=== PATIENT | male | born 1940 | race Caucasian/White ===

== ENCOUNTER 2018-10-13 12:40 | Emergency (ER) | payer MEDICARE, OTHER ==
[~2018-10-13] VITALS: Ht 167.6 cm; Wt 70.3 kg
--- NOTE | 2018-10-13 12:43 | NUR ---
PT A/OX4, BIB [facility] FROM HOME, FOR ARTERIAL BLEED FROM THE LATERAL ASPECT OF THE R ANKLE. PER FOREIGN EXCHANGE SERVICES MANAGER'S REPORT, PT WAS PICKING AT HIS SCAB WHEN BLOOD STARTED "SQUIRTING OUT" ONTO THE WALL. PT PRESENTS W/ DRESSING APPLIED BY [facility]. NO BLOOD SOAKING THROUGH THE DRESSING. VSS. PT DENIES PAIN, C/P, SOB, N/V/D, DIZZINESS, HEADACHE.
--- NOTE | 2018-10-13 12:52 | NUR ---
JULIAN CARTAGENA AT BEDSIDE. UPON REMOVING THE DRESSING APPLIED BY NICKY, NO BLEEDING NOTED.
--- NOTE | 2018-10-13 13:11 | NUR ---
PRESSURE DRESSING APPLIED TO THE R FOOT. JULIAN CARTAGENA AT BEDSIDE FOR PT UPDATE.
--- NOTE | 2018-10-13 13:24 | NUR ---
PMSC IN RLE INTACT, NORMAL, CAP REFILL < 3 SECONDS POST PRESSURE DRESSING APPLICATION.
--- NOTE | 2018-10-13 13:25 | NUR ---
Patient discharged to home in stable conditon. Written and verbal after care instructions given. Patient verbalizes understanding of instructions. ALL BELONGINGS W/ PT. PT SELF-AMBULATED W/O DIFFICULTY.
[2018-10-13 13:27] VITALS: BP 114/70
== END 2018-10-13 13:27 | disposition home or self-care (01) ==
LOC: ER 12:40
DX: I83.891 Varicose veins of right lower extremity with other complications (principal)
CPT/HCPCS: A4663

== ENCOUNTER 2021-05-18 13:16 | Inpatient (IN) | payer MEDICARE, OTHER ==
[~2021-05-18] VITALS: Ht 167.6 cm; Wt 64.4 kg
--- NOTE | 2021-05-18 13:57 | NUR ---
PT IS IN ROOM #2B. DR CHERRY EVALUATED THE PT.
[2021-05-18 14:50] LABS: HEMATOCRIT 34.3 % (36.7-47.1); MEAN CORPUSCULAR HEMOGLOBIN 34.6 uug (23.8-33.4); PLATELET COUNT (AUTO) 113 K/uL (152-348)
[2021-05-18 14:53] LABS: CREATININE 0.9 mg/dL (0.6-1.3); POTASSIUM 4.2 mmol/L (3.5-5.1)
[2021-05-18 14:59] LABS: BILIRUBIN,DIRECT 0.2 mg/dL (0.0-0.2); BILIRUBIN,TOTAL 0.8 mg/dL (0.2-1.0); TOTAL PROTEIN, SERUM 6.9 g/dL (6.4-8.2)
[2021-05-18] MEDS ORDERED: MORPHINE SULFATE 2 MG/1 ML DISP.SYRIN IV ONE (16:45)
[2021-05-18] MEDS ORDERED: ONDANSETRON 4 MG/2 ML VIAL IV ONE (16:45)
[2021-05-18] MEDS ORDERED: IV D5 1/2 NS 1000 ML 1,000 ML IV ONE (17:15)
[2021-05-18] MEDS ORDERED: ONDANSETRON 4 MG/2 ML VIAL ONE (17:39)
[2021-05-18] MEDS ORDERED: MORPHINE SULFATE 2 MG/1 ML DISP.SYRIN ONE (17:39)
[2021-05-18] MEDS ORDERED: IV D5 1/2 NS 1000 ML 1,000 ML IV PRN (18:00)
[2021-05-18] MEDS ORDERED: ONDANSETRON 4 MG/2 ML VIAL IV PRN (18:00)
[2021-05-18] MEDS ORDERED: MORPHINE SULFATE 2 MG/1 ML DISP.SYRIN IV PRN (18:00)
--- NOTE | 2021-05-18 19:24 | NUR ---
REPORT GIVEN TO VISUAL LEAD RN.
--- NOTE | 2021-05-18 19:45 | NUR ---
At pt bedside for assessment. Pt is a very pleasant 81yo male with a Hx of Sz disorder who had a ground level mechanical fall with no LOC. Pt states that he was in yoga class doing balancing exercises and it was the first time they had him use the soft foam steps that compress when stepped on. It was these soft foam steps that made him lose his balance and fall. Pt has no complaints of pain at this time and states that as long as he lies still, he is pain free, it is only when he attempts to move that he feels a shart stabbing pain. VSS, PE WNL, strong and equal curtain cutter hand strength bilat, strong and reg pulses x4ext, Lungs clear bilat, NSR without ectopy, RRR with normal s1s2 without g/m/r. Pt on gurney resting comfortably. Asked if i can get him anything, he said no thank you nothing at the moment. Briefly discussed pt's dispo with him; that hes being admitted and will most likely have surgery in the AM. I also told him that i will be expediting as much as possible to get him up soon and was just waiting for the teleRN at call back. Pt understood and was very patient and polite.
--- NOTE | 2021-05-18 19:50 | NUR ---
Called tele floor to try to give report since i was told thaty tele should be ready to recieve pt after sift change, however teleRN was with a pt and couldn't accept report at this time. She did however, say that she will call back at her earliest convienence. Pt resting comfortably patiently awaiting transport to his room 315.
--- NOTE | 2021-05-18 20:30 | NUR ---
TeleRN finally called back after 2 attempts from me to try to call in report. TeleRN however was very busy with another patient and had just finished up with her and was now ready to recieve report. Thorough report was given to military nurse using SBAR method. Pt has good color, temp and appearance. VSS, PE WNL beside the deformity and decrebitus at Rt hip due to ther fx. pt otherwise healthy besides SZ disorder. teleRN said to bring pt up as soon as I could.
--- NOTE | 2021-05-18 20:35 | NUR ---
informed admitting rep Jeana, to turn-over pt so I can take him to his room. Jeana said she was working on rolling over the other pt going to room 317 and that Mr. Fry would just have to wait til she's done. Stgar
--- NOTE | 2021-05-18 21:30 | NUR ---
Report given to PLATE AND FRAME FILTER OPERATOR using SBAR method. still awaiting admitting paper work before transport upstair to room 317. Pt sleeping comfortably with audible snorring. VSS, PE WNL. No complaints of pain.
[2021-05-18] MEDS ORDERED: LATA2.5D15 EACHEYE (21:57)
[2021-05-18] MEDS ORDERED: TIMO5DRO18 EACHEYE (21:57)
[2021-05-18] MEDS ORDERED: LEVE500T9 PO (21:57)
--- NOTE | 2021-05-18 22:15 | NUR ---
Pt transported to room 315 via gurney without incident or difficulty. Pt transfered into hospital bed using 2 ppl plus myself to pull him over on to bed. Pt dressed into hospital gown, tele monitor attached and pt placed in pos of comfort, all possessions accounted for. Pt has good color, temp and appearance. No complaints of pain, only when transfering to bed. no s/sx of distress present. Pt in good spirits aeb smiling and upbeat, jovial demeanor.
[2021-05-18] MEDS ORDERED: LATANOPROST OPHT DROP 2.5 ML BOTTLE EACHEYE SCH (22:30)
[2021-05-18] MEDS: levETIRAcetam 500 MG TABLET PO SCH (22:46)
[2021-05-18 23:08] VITALS: BP 134/57
--- NOTE | 2021-05-18 23:48 | NUR ---
Pt arrived in the unit at 2212 via gurney from ER. Admitted to Med Surg for right hip fx. AAO x4. No acute distress noted. Right AC IV, patent. IVF at 70cc/hr. Pt to be NPO after midnight for planned surgery in the morning. Pertinent assessment done. Oriented pt in room and equipment. Dr. Badillo seen pt for consult. Safety measures maintained. Call light and personal items within reach. Will continue to monitor.
--- NOTE | 2021-05-19 04:38 | NUR ---
IVF at 75 cc/hr, not 70cc/ hr.
[2021-05-19 04:41] VITALS: BP 109/52
[2021-05-19 06:02] LABS: HEMATOCRIT 30.3 % (36.7-47.1); MEAN CORPUSCULAR HEMOGLOBIN 34.4 uug (23.8-33.4); MEAN CORPUSCULAR VOLUME 96.9 fL (73.0-96.2); PLATELET COUNT (AUTO) 90 K/uL (152-348)
[2021-05-19 06:29] LABS: THYROID STIMULATING HORMONE 4.779 mIU/mL (0.358-3.740)
[2021-05-19 06:36] LABS: MAGNESIUM 1.8 mg/dL (1.8-2.4); POTASSIUM 3.8 mmol/L (3.5-5.1)
--- NOTE | 2021-05-19 07:30 | NUR ---
RECEIVED PATIENT ALERT/ORIENTEDX4. DENIES DISCOMFORT AT THE START OF THE SHIFT. NO PAIN IDENTIFIED. KEPT COMFORTABLE. DVT PUMP IN PLACE. IV LINE, INTACT AND INFUSING WELL. KEPT CALL LIGHT WITHIN REACH. WILL CONTINUE TO MONITOR.
[2021-05-19 08:00] VITALS: BP 114/53
[2021-05-19 08:15] VITALS: BP 106/51
[2021-05-19] MEDS: levETIRAcetam 500 MG TABLET PO SCH ×3 (08:30→16:50)
--- NOTE | 2021-05-19 08:30 | NUR ---
PATIENTS SIGNED CONSENTS FOR THE SURGERY. NO CONCERNS OR QUESTIONS AT THIS TIME. WILL CONTINUE TO MONITOR.
--- NOTE | 2021-05-19 08:34 | NUR ---
PATIENT REFUSED TO TAKE KEPPRA. HE STATED HE WILL TAKE IT AFTER THE SURGERY. HE ALSO STATED HE SKIPS THIS MEDICATION IF HE DOES NOT WANT TO TAKE IT. HE ALSO MENTIONED HIS LAST SEIZURE WAS YRS AGO. WILL CONTINUE TO MONITOR.
[2021-05-19 08:58] LABS: *RHEUMATOID FACTOR SCREEN NEGATIVE (NEGATIVE)
[2021-05-19] MEDS ORDERED: TIMOLOL MALEATE 0.5% OPHT DROP 5 ML BOTTLE OP SCH (09:00)
[2021-05-19 09:03] LABS: *BILIRUBIN,URIN NEGATIVE (NEGATIVE); *CLARITY,URINE CLEAR (CLEAR); *COLOR,URINE YELLOW (YELLOW); *KETONES,URINE NEGATIVE (NEGATIVE); *UROBILINOGEN,URINE 0.2 E.U./dl (NORMAL); LEUKOCYTE ESTERASE ,URINE NEGATIVE (NEGATIVE); NITRITE, URINE NEGATIVE (NEGATIVE); UGLUCOSE NEGATIVE (NEGATIVE)
[2021-05-19 09:06] LABS: *BLOOD, URINE TRACE (NEGATIVE)
[2021-05-19] MEDS: TIMOLOL MALEATE 0.5% OPHT DROP 5 ML BOTTLE EACHEYE SCH (10:30)
--- NOTE | 2021-05-19 10:35 | NUR ---
PATIENT LEFT FOR OR, ACCOMPANIED BY PATITO AND KIA VIA HOSPITAL BED. VS WNL. DENIES DISCOMFORT. VOIDED X1 IN URINAL. NO OTHER CONCERN AT THIS TIME.
[2021-05-19] MEDS ORDERED: FENTANYL CITRATE 250 MCG/5 ML AMPUL ONE (10:55)
[2021-05-19] MEDS ORDERED: ROCURONIUM BROMIDE 50 MG/5 ML VIAL ONE (10:56)
[2021-05-19] MEDS ORDERED: GLYCOPYRROLATE 0.2 MG/ML VIAL ONE ×2 (11:47→11:49)
[2021-05-19] MEDS ORDERED: VANCOMYCIN 1000 MG VIAL ONE (11:48)
[2021-05-19 13:01] LABS: BACTERIA,URINE NONE SEEN /HPF (NONE SEEN); SQUAMOUS EPITHELIAL CELL,UR FEW /HPF (NONE SEEN); WBC,URINE 0-3 /HPF (0-3)
[2021-05-19] MEDS ORDERED: HYDROMORPHONE 1 MG/1 ML DISP.SYRIN ONE (13:16)
[2021-05-19] MEDS ORDERED: MORPHINE SULFATE 4 MG/1 ML DISP.SYRIN IV PRN (13:30)
--- NOTE | 2021-05-19 14:10 | NUR ---
RECEIVED PATIENT AWAKE AND ALERT. DENIES PAIN AT THE TIME OF ARRIVAL TOT HE UNIT. IV OUT, REINSERTED G20 TO THE LEFT WRIST ON A FIRST ATTEMPT, DENIES DISCOMFORT, INFUSING WELL WITH IV RUNNING THE 75CC/HR ORDERED. RIGHT HIP DRESSING DRY AND INTACT. WITH ICE PACKS TO RIGHT HIP. KEPT COMFORTABLE. NEEDS ATTENDED. WILL CONTINUE TO MONITOR.
[2021-05-19 14:12] VITALS: BP 116/58
[2021-05-19] MEDS: POTASSIUM CHLORIDE 20 MEQ in IV D5 1/2 NS 1000 ML 1,000 ML IV PRN (14:28)
[2021-05-19 15:55] VITALS: BP 112/61
[2021-05-19] MEDS: FERROUS SULFATE 325 MG TABEC PO SCH (16:51)
--- NOTE | 2021-05-19 18:38 | NUR ---
PATIENT DENIES PAIN SINCE HE CAME BACK FROM THE SURGERY. HE ATE DINNER, TOLERATED REGULAR DIET WELL. DRESSING INTACT, NO BLEEDING NOTED. KEPT CALL LIGHT WITHIN REACH. NO OTHER CONCERNS IDENTIFIED. . ALL NEEDS ATTENDED. ALL DUE MEDS GIVEN ORDERED. WILL ENDORSE TO THE NEXT SHIFT FOR CONTINUITY OF CARE.
--- NOTE | 2021-05-19 19:00 | NUR ---
Received report from previous RN. Patient is awake, lying in bed, resting comfortably. Denies pain at this time. No signs of acute distress noted. A/Ox4. Checked IV site patent and flushed. No erythema, bleeding, or infiltration noted. Post op dressing is intact. Bed at lowest position, brakes on, siderails x2. Call light within reach. Will continue to monitor.
[2021-05-19 20:00] VITALS: BP 103/56
[2021-05-19] MEDS: CEFAZOLIN 1 G in IV DEXTROSE 5% 50 ML IV SCH (20:23)
[2021-05-19] MEDS: LATANOPROST OPHT DROP 2.5 ML BOTTLE EACHEYE SCH (20:24)
--- NOTE | 2021-05-20 00:32 | NUR ---
Resting comfortably. No significant change of condition noted. Will continue to monitor.
[2021-05-20] MEDS: CEFAZOLIN 1 G in IV DEXTROSE 5% 50 ML IV SCH (03:13)
[2021-05-20] MEDS ORDERED: IV D5W-0.45% NS +20 KCL 1,000 ML IV ONE ×2 (03:26→03:41)
[2021-05-20 04:00] VITALS: BP 125/56
[2021-05-20] MEDS: POTASSIUM CHLORIDE 20 MEQ in IV D5 1/2 NS 1000 ML 1,000 ML IV PRN ×2 (04:30→20:01)
[2021-05-20 05:07] LABS: HEPATITIS B SURFACE AG Negative (Negative)
[2021-05-20 05:52] LABS: HEMATOCRIT 23.9 % (36.7-47.1); MEAN CORPUSCULAR HEMOGLOBIN 34.9 uug (23.8-33.4); MEAN CORPUSCULAR VOLUME 97.1 fL (73.0-96.2); PLATELET COUNT (AUTO) 74 K/uL (152-348)
[2021-05-20 05:59] LABS: CREATININE 0.8 mg/dL (0.6-1.3); MAGNESIUM 1.7 mg/dL (1.8-2.4); POTASSIUM 4.3 mmol/L (3.5-5.1)
--- NOTE | 2021-05-20 06:46 | NUR ---
Left patient asleep, lying in bed, in stable condition. VS stable.
--- NOTE | 2021-05-20 07:00 | NUR ---
RECEIVED PATIENT AWAKE/ALERT, DENIES DISCOMFORT. KEPT CALL LIGHT WITHIN REACH. WILL CONTINUE TO MONITOR AND PLAN CARE ORDERED.
[2021-05-20 07:06] LABS: A/G RATIO 1.5 (0.7-1.7); ALBUMIN 3.3 g/dL (2.9-4.4); ALPHA-1-GLOBULIN 0.2 g/dL (0.0-0.4); ALPHA-2-GLOBULIN 0.5 g/dL (0.4-1.0); BETA GLOBULIN 0.8 g/dL (0.7-1.3); GAMMA GLOBULIN 0.8 g/dL (0.4-1.8); GLOBULIN, TOTAL 2.2 g/dL (2.2-3.9); M-SPIKE Not Observed g/dL (Not Observed)
[2021-05-20 08:06] LABS: *IMMUNOGLOBULIN G, SERUM 750 mg/dL (603-1613); IMMUNOGLOBULIN A, SERUM 112 mg/dL (61-437); IMMUNOGLOBULIN M, SERUM 117 mg/dL (15-143)
[2021-05-20] MEDS: FERROUS SULFATE 325 MG TABEC PO SCH (09:10)
[2021-05-20] MEDS: levETIRAcetam 500 MG TABLET PO SCH ×2 (09:10→16:26)
[2021-05-20] MEDS: TIMOLOL MALEATE 0.5% OPHT DROP 5 ML BOTTLE EACHEYE SCH (09:11)
[2021-05-20] MEDS: MAGNESIUM SULFATE/D5W 100 ML IV SCH ×2 (09:18→10:46)
[2021-05-20 10:06] LABS: *ANTI-SCLERODERMA-70 AB <0.2 AI (0.0-0.9); *SJOGREN'S ANTI-SS-A <0.2 AI (0.0-0.9); *SJOGREN'S ANTI-SS-B <0.2 AI (0.0-0.9); *SMITH ANTIBODIES <0.2 AI (0.0-0.9); ANTI-DNA(DS) AB, QN <1 IU/mL (0-9)
[2021-05-20 11:50] VITALS: BP 111/56
[2021-05-20 16:22] LABS: HEMATOCRIT 21.7 % (36.7-47.1); MEAN CORPUSCULAR VOLUME 96.2 fL (73.0-96.2); PLATELET COUNT (AUTO) 68 K/uL (152-348)
[2021-05-20 16:48] VITALS: BP 126/47
[2021-05-20 17:05] LABS: BAND % (MANUAL) 1 % (0-10); EOSINOPHILS % (MANUAL) 2 % (0-8); LYMPHOCYTES % (MANUAL) 8 % (20-40); MONOCYTES % (MANUAL) 3 % (2-10); NEUTROPHILS % (MANUAL) 86 % (42-75)
--- NOTE | 2021-05-20 17:06 | NUR ---
INFORMED HUMERA RAMOS REGARDING HGB OF 7.9. PER PATIENT, HE DOES NOT WANT BLD. TRANSFUSION. HUMERA RAMOS ORDER REPEAT CBC IN THE AM. VERENICE DAVILA ALSO AGREE TO THE PLAN OF CARE TO REPEAT CBC IN THE AM. DRESSING INTACT, NO ACTIVE BLEEDING IDENTIFIED. WILL CONTINUE TO MONITOR.
[2021-05-20] MEDS: CALCIUM CARBONATE 500 MG TAB.CHEW PO PRN (17:53)
--- NOTE | 2021-05-20 18:05 | NUR ---
REPORTED STOMACH UPSET, LOLA CLINICAL TRIALS MANAGER INFORMED, ORDERED TUMS PRN. DUE MEDS GIVEN. ALL NEEDS ATTENDED. DRESSING INTACT. KEPT COMFORTABLE DURING THE ENTIRE SHIFT. WILL CONTINUE PLAN FOR CONTINUITY OF CARE.
[2021-05-20 20:00] VITALS: BP 117/58
[2021-05-20] MEDS: LATANOPROST OPHT DROP 2.5 ML BOTTLE EACHEYE SCH (20:34)
[2021-05-21 04:00] VITALS: BP 116/51
--- NOTE | 2021-05-21 06:28 | NUR ---
Patient denies discomfort during the shift, no pain identified. skin intact to the the incision site, no bleeding noted. All due meds given. kept call light within reach. Frequent checks done. Will endorse to the next shift for continuity of care.
[2021-05-21 06:51] LABS: HEMATOCRIT 21.1 % (36.7-47.1); MEAN CORPUSCULAR HEMOGLOBIN 35.1 uug (23.8-33.4); MEAN CORPUSCULAR VOLUME 96.8 fL (73.0-96.2); PLATELET COUNT (AUTO) 68 K/uL (152-348)
[2021-05-21 07:17] LABS: CREATININE 0.8 mg/dL (0.6-1.3); POTASSIUM 4.3 mmol/L (3.5-5.1)
[2021-05-21] MEDS: FERROUS SULFATE 325 MG TABEC PO SCH (08:19)
[2021-05-21] MEDS: levETIRAcetam 500 MG TABLET PO SCH ×2 (08:19→16:29)
[2021-05-21] MEDS: TIMOLOL MALEATE 0.5% OPHT DROP 5 ML BOTTLE EACHEYE SCH (08:19)
[2021-05-21] MEDS: MAGNESIUM HYDROXIDE 30 ML LIQUID UDC PO PRN (09:21)
[2021-05-21] MEDS: POTASSIUM CHLORIDE 20 MEQ in IV D5 1/2 NS 1000 ML 1,000 ML IV PRN (10:11)
[2021-05-21 12:00] VITALS: BP 102/70
[2021-05-21] MEDS: CALCIUM CARBONATE 500 MG TAB.CHEW PO PRN (14:35)
[2021-05-21 16:00] VITALS: BP 109/48
[2021-05-21] MEDS ORDERED: NEUTRA PHOS PACKET PO ONE (16:00)
[2021-05-21] MEDS: ACETAMINOPHEN 325 MG TABLET PO PRN (16:13)
--- NOTE | 2021-05-21 18:36 | NUR ---
Patient resting in bed. AOx4. On 1L O2 via NC. No signs of acute distress. Patient denies pain/ discomfort. Patient denies SOB/ . IV access patent and intact running NS with KCl @75cc/hr. Patient had temperature of 100.3. Informed VERENICE Slaughter. Tylenol PRN given. Cooling measures provided. Temperature currently 98.7. Compliant with medications and care. Will endorse to incoming shift for continuity of care.
[2021-05-21 20:16] VITALS: BP 105/52
[2021-05-21] MEDS: LATANOPROST OPHT DROP 2.5 ML BOTTLE EACHEYE SCH (20:19)
[2021-05-22] VITALS (8 sets, daily range): BP systolic 103–117; BP diastolic 45–63
[2021-05-22] MEDS: POTASSIUM CHLORIDE 20 MEQ in IV D5 1/2 NS 1000 ML 1,000 ML IV PRN (00:01)
[2021-05-22] MEDS: CALCIUM CARBONATE 500 MG TAB.CHEW PO PRN (00:09)
[2021-05-22] MEDS: ACETAMINOPHEN 325 MG TABLET PO PRN (00:09)
--- NOTE | 2021-05-22 05:28 | NUR ---
Pt slept throughout the night. Denies pain or SOB. Transfused 1 unit of blood. Pt tolerated well with no adverse reactions. IV site intact. No other issues or concerns at this time, will endorse to day shift.
[2021-05-22 06:33] LABS: MEAN CORPUSCULAR VOLUME 94.5 fL (73.0-96.2); PLATELET COUNT (AUTO) 65 K/uL (152-348)
[2021-05-22 06:50] LABS: CREATININE 0.8 mg/dL (0.6-1.3); MAGNESIUM 1.9 mg/dL (1.8-2.4); PHOSPHOROUS 2.9 mg/dL (2.5-4.9); POTASSIUM 4.4 mmol/L (3.5-5.1)
[2021-05-22] MEDS ORDERED: ENSURE ENLIVE (VAN) 240 ML LIQUID PO SCH (09:00)
[2021-05-22] MEDS: levETIRAcetam 500 MG TABLET PO SCH ×2 (09:05→16:48)
[2021-05-22] MEDS: TIMOLOL MALEATE 0.5% OPHT DROP 5 ML BOTTLE EACHEYE SCH (09:05)
[2021-05-22] MEDS: FERROUS SULFATE 325 MG TABEC PO SCH (09:05)
[2021-05-22 09:55] LABS: HEMATOCRIT 23.2 % (36.7-47.1)
--- NOTE | 2021-05-22 09:56 | NUR ---
Patient in bed, eating breakfast. A&Ox4. On 1L O2, tolerating well. No acute distress noted. No c/o pain verbalized. Morning meds administered. Bedside urinal noted with 100cc of clear, yellow urine. Assisted with needs. Safety precautions in place. Call light within reach. Will continue to monitor
[2021-05-22] MEDS ORDERED: CALC500T63 PO (12:01)
[2021-05-22] MEDS ORDERED: MAGN400O6 PO (12:01)
[2021-05-22] MEDS ORDERED: Lactose-Free Food PO (12:01)
[2021-05-22] MEDS ORDERED: FERR325T28 PO (12:01)
[2021-05-22] MEDS ORDERED: ONDANSETRON 4 MG/2 ML VIAL IV ONE (14:54)
[2021-05-22] MEDS ORDERED: PROPOFOL 200 MG/20 ML BOTTLE IV ONE (14:54)
[2021-05-22] MEDS ORDERED: CEFAZOLIN 1 G VIAL IM ONE (14:54)
[2021-05-22] MEDS ORDERED: SEVOFLURANE 250 ML BOTTLE IH ONE (14:54)
[2021-05-22] MEDS ORDERED: NEOSTIGMINE METHYLSULFATE 10 MG/10 ML VIAL IM ONE (14:54)
[2021-05-22] MEDS ORDERED: DEXAMETHASONE SOD PHOSPHATE 4 MG INJ IV ONE (14:54)
[2021-05-22] MEDS ORDERED: GLYCOPYRROLATE 0.2 MG/ML VIAL IJ ONE (14:54)
[2021-05-22] MEDS ORDERED: LIDOCAINE-MPF 2% 5 ML VIAL IJ ONE (14:54)
--- NOTE | 2021-05-22 16:16 | NUR ---
Patient discharging to Acute rehab unit to continue with PT services. To stay in same room. Discharge instructions given to patient. Verbalized understanding. All questions answered. No needs unmet.
[2021-05-22] MEDS: MAGNESIUM HYDROXIDE 30 ML LIQUID UDC PO PRN (16:50)
== END 2021-05-22 14:55 | DRG 481 ==
LOC: ER 13:23 → TRANSITION 17:46 → MEDSURG3 21:50
PROVIDERS: ADMIT Nurse Practitioner Family; ATTEND Registered Nurse
PROC: 0QS606Z Reposition Right Upper Femur with Intramedullary Internal Fixation Device, Open Approach (ICD-10-PCS; principal; 2021-05-19)
PROC: 05H633Z Insertion of Infusion Device into Left Subclavian Vein, Percutaneous Approach (ICD-10-PCS; 2021-05-21)
PROC: B547ZZA Ultrasonography of Left Subclavian Vein, Guidance (ICD-10-PCS; 2021-05-21)
PROC: 30233N1 Transfusion of Nonautologous Red Blood Cells into Peripheral Vein, Percutaneous Approach (ICD-10-PCS; 2021-05-22)
DX: S72.141A Displaced intertrochanteric fracture of right femur, initial encounter for closed fracture (principal); D61.818 Other pancytopenia; G40.909 Epilepsy, unspecified, not intractable, without status epilepticus; D69.6 Thrombocytopenia, unspecified; D53.9 Nutritional anemia, unspecified; E61.1 Iron deficiency; N40.0 Benign prostatic hyperplasia without lower urinary tract symptoms; Z20.822 Contact with and (suspected) exposure to COVID-19; Z86.16 Personal history of COVID-19; W19.XXXA Unspecified fall, initial encounter; Y93.89 Activity, other specified; Y92.009 Unspecified place in unspecified non-institutional (private) residence as the place of occurrence of the external cause
CPT/HCPCS: 36415; 70030-TC; 71045; 73502; 73503; 76700; 82747; 82784; 83550; 83735; 83921; 84100; 84155; 84165; 84443; 85014; 85018; 85025; 85730; 86038; 86140; 86334; 86430; 86706; 86803; 86850; 86900; 86901; 86920; 87340; 93005; 93307; 97161; A4649; A4663; A6209; C1713; G0378; J0690; J1100; J1170; J2270; J2405; J3010; J3370; J3475; J3480; J3490; J7030; J7040; J7050; J7060; P9016

== ENCOUNTER 2021-05-21 11:29 | Inpatient (IN) | payer MEDICARE, OTHER ==
[~2021-05-21] VITALS: Ht 167.6 cm; Wt 65.3 kg
[~2021-05-21 11:29] MED LIST: LATA2.5D15 EACHEYE; LEVE500T9 PO; TIMO5DRO18 EACHEYE
[2021-05-22] MEDS ORDERED: FERR325T28 PO (12:01)
[2021-05-22] MEDS ORDERED: MAGN400O6 PO (12:01)
[2021-05-22] MEDS ORDERED: CALC500T63 PO (12:01)
[2021-05-22] MEDS ORDERED: Lactose-Free Food PO (12:01)
[2021-05-22] MEDS ORDERED: MAGNESIUM HYDROXIDE 30 ML LIQUID UDC PO PRN (17:30)
[2021-05-22] MEDS ORDERED: CALCIUM CARBONATE 500 MG TAB.CHEW PO PRN (17:30)
[2021-05-22] MEDS ORDERED: LATANOPROST OPHT DROP 2.5 ML BOTTLE EACHEYE SCH (18:00)
[2021-05-22] MEDS: LATANOPROST OPHT DROP 2.5 ML BOTTLE EACHEYE SCH (20:33)
[2021-05-22 21:03] VITALS: BP 112/56
--- NOTE | 2021-05-22 21:12 | NUR ---
Admission report received from Nurse Chuyita. Pt is 81 y/o make admitted to rehab with dx of R hip fracture. He is alert and oriented x4, able to make needs known. Ambulatory with walker and assist to bedside commode. Urinal at bedside. Denies pain and discomfort at this time. Admission process continued. All needs attended. Call light placed within reach. Will continue to monitor.
[2021-05-23 04:00] VITALS: BP 122/60
[2021-05-23 06:50] LABS: HEMATOCRIT 23.2 % (36.7-47.1); MEAN CORPUSCULAR HEMOGLOBIN 34.6 uug (23.8-33.4); MEAN CORPUSCULAR VOLUME 94.7 fL (73.0-96.2); PLATELET COUNT (AUTO) 89 K/uL (152-348)
[2021-05-23 06:58] LABS: CREATININE 0.7 mg/dL (0.6-1.3); POTASSIUM 4.2 mmol/L (3.5-5.1)
[2021-05-23 08:00] VITALS: BP 125/65
[2021-05-23] MEDS: FERROUS SULFATE 325 MG TABEC PO SCH (08:05)
[2021-05-23] MEDS: CYANOCOBALAMIN 1,000 MCG TABLET PO SCH (08:05)
[2021-05-23] MEDS: levETIRAcetam 500 MG TABLET PO SCH ×2 (08:05→17:10)
[2021-05-23] MEDS: TIMOLOL MALEATE 0.5% OPHT DROP 5 ML BOTTLE EACHEYE SCH (08:06)
[2021-05-23 11:08] LABS: EOSINOPHILS % (MANUAL) 1 % (0-8); LYMPHOCYTES % (MANUAL) 25 % (20-40); MONOCYTES % (MANUAL) 7 % (2-10); NEUTROPHILS % (MANUAL) 67 % (42-75)
[2021-05-23] MEDS: DOCUSATE SODIUM 100 MG CAPSULE PO SCH ×2 (13:04→17:10)
[2021-05-23 16:00] VITALS: BP 122/62
[2021-05-23] MEDS: MIRALAX 17 GM POWD.PACK PO PRN (18:13)
--- NOTE | 2021-05-23 19:29 | NUR ---
no distress noted, right hip incision site is clean and dry.
[2021-05-23] MEDS: LATANOPROST OPHT DROP 2.5 ML BOTTLE EACHEYE SCH (20:02)
--- NOTE | 2021-05-23 20:42 | NUR ---
Received pt resting in bed. AAO x4. Hard of hearing, pt uses his hearing aids. No acute distress noted. Denies pain/ discomfort. Due med given as ordered. Pt offered prune juice to help with constipation, pt refused for now and stated he took a lot of BM meds today already and will take it tomorrow. Clean and dry surgical site. Safety measures maintained. Call light and personal items within reach. Will continue to monitor.
[2021-05-23 20:57] VITALS: BP 110/59
[2021-05-24 04:10] VITALS: BP 115/65
[2021-05-24 08:00] VITALS: BP 112/52
[2021-05-24] MEDS: MIRALAX 17 GM POWD.PACK PO PRN (08:02)
[2021-05-24] MEDS: DOCUSATE SODIUM 100 MG CAPSULE PO SCH ×2 (08:02→16:28)
[2021-05-24] MEDS: CYANOCOBALAMIN 1,000 MCG TABLET PO SCH (08:02)
[2021-05-24] MEDS: levETIRAcetam 500 MG TABLET PO SCH ×2 (08:02→16:28)
[2021-05-24] MEDS: FERROUS SULFATE 325 MG TABEC PO SCH (08:02)
[2021-05-24] MEDS: TIMOLOL MALEATE 0.5% OPHT DROP 5 ML BOTTLE EACHEYE SCH (08:02)
[2021-05-24 16:00] VITALS: BP 104/53
--- NOTE | 2021-05-24 19:37 | NUR ---
none events noted during shift, patient tolerated PT, OT services well, right hip incision is clean and dry, chante are intact.
[2021-05-24 20:00] VITALS: BP 105/64
[2021-05-24] MEDS: LATANOPROST OPHT DROP 2.5 ML BOTTLE EACHEYE SCH (20:32)
[2021-05-25 07:53] VITALS: BP 105/95
--- NOTE | 2021-05-25 08:00 | NUR ---
Right hip dressing intact with chante no redness noted. PT denies any c/o pain. Discuss plan of care with pain management pt agreeable with plan of care. Call light is within reach.
[2021-05-25] MEDS: FERROUS SULFATE 325 MG TABEC PO SCH (08:57)
[2021-05-25] MEDS: DOCUSATE SODIUM 100 MG CAPSULE PO SCH ×2 (08:57→16:59)
[2021-05-25] MEDS: CYANOCOBALAMIN 1,000 MCG TABLET PO SCH (08:57)
[2021-05-25] MEDS: levETIRAcetam 500 MG TABLET PO SCH ×2 (08:57→16:59)
[2021-05-25] MEDS: TIMOLOL MALEATE 0.5% OPHT DROP 5 ML BOTTLE EACHEYE SCH (08:58)
[2021-05-25 12:00] VITALS: BP 105/55
[2021-05-25 15:27] VITALS: BP 98/52
--- NOTE | 2021-05-25 16:00 | NUR ---
Assisted pt to bathroom. PT compliant with using TDWB on R leg with FWW. PT large BM.
--- NOTE | 2021-05-25 16:24 | NUR ---
INDIVIDUALIZED PLAN OF CARE
[2021-05-25 20:00] VITALS: BP 101/54
[2021-05-25] MEDS: LATANOPROST OPHT DROP 2.5 ML BOTTLE EACHEYE SCH (20:07)
[2021-05-26 04:03] VITALS: BP 121/55
--- NOTE | 2021-05-26 05:45 | NUR ---
PT denies any c/o pain. Pt had uneventful night.
[2021-05-26 06:44] LABS: HEMATOCRIT 21.8 % (36.7-47.1); MEAN CORPUSCULAR HEMOGLOBIN 34.6 uug (23.8-33.4); MEAN CORPUSCULAR VOLUME 95.6 fL (73.0-96.2); PLATELET COUNT (AUTO) 145 K/uL (152-348)
[2021-05-26 07:06] LABS: ALANINE AMINOTRANSFERASE 32 U/L (16-63); ALKALINE PHOSPHATASE 59 U/L (50-136); ASPARTATE AMINOTRANSFERASE 27 U/L (15-37); BILIRUBIN,TOTAL 1.7 mg/dL (0.2-1.0); CARBON DIOXIDE 27 mmol/L (21-32); CHLORIDE 102 mmol/L (98-107); CREATININE 0.8 mg/dL (0.6-1.3); GLUCOSE 100 mg/dL (74-106); POTASSIUM 4.4 mmol/L (3.5-5.1); TOTAL PROTEIN, SERUM 5.8 g/dL (6.4-8.2); UREA NITROGEN, BLOOD 16 mg/dL (7-18)
[2021-05-26 07:28] VITALS: BP 107/52
[2021-05-26 08:00] VITALS: BP 107/52
[2021-05-26] MEDS: DOCUSATE SODIUM 100 MG CAPSULE PO SCH ×2 (08:52→17:49)
[2021-05-26] MEDS: levETIRAcetam 500 MG TABLET PO SCH ×2 (08:53→17:49)
[2021-05-26] MEDS: CYANOCOBALAMIN 1,000 MCG TABLET PO SCH (08:53)
[2021-05-26] MEDS: FERROUS SULFATE 325 MG TABEC PO SCH (08:53)
[2021-05-26] MEDS: TIMOLOL MALEATE 0.5% OPHT DROP 5 ML BOTTLE EACHEYE SCH (08:56)
--- NOTE | 2021-05-26 09:00 | NUR ---
morning vitals taken by SURGICAL CODER, temperature reported to be 99.4. was retaken and temperature showed a reading of 98.2.
--- NOTE | 2021-05-26 13:20 | NUR ---
Patient is received awake in his room. A/O X 4 to person, place, environment. Pt. affect is cooperative, talkative, sociable. Pt. is complaint with medications. Pt. has right hip chante, no redness. No PRN requested. Fall and safety precautions implemented.
[2021-05-26 15:14] VITALS: BP 113/47
--- NOTE | 2021-05-26 18:43 | NUR ---
pt in bed watching tv, on room air, saturating at 96%, no signs of distress, no reports of pain at this time. pt a/ox4, IV on left UA ML 18g. touch down weight bearing on right hip with min assist. will endorse to oncoming nurse.
--- NOTE | 2021-05-26 19:05 | NUR ---
Awake, watching TV during initial rounds with HOB elevated. No s/s of respiratory distress. Denies any pain/discomforts. Midline on MARILYN intact and patent. No s/s of infiltration. Safety measures and fall prevention maintained. Continue care as planned.
[2021-05-26 20:10] VITALS: BP 99/54
[2021-05-26] MEDS: LATANOPROST OPHT DROP 2.5 ML BOTTLE EACHEYE SCH (21:09)
[2021-05-27 04:06] VITALS: BP 105/65
--- NOTE | 2021-05-27 07:00 | NUR ---
PATIENT IS ALERT/ORIENTED. DENIES PAIN. NO DISTRESS IDENTIFIED. KEPT CALL LIGHT WITHIN REACH. WILL CONTINUE TO MONITOR FOR ANY CONCERN/CHANGES.
[2021-05-27 07:22] LABS: HEMATOCRIT 22.1 % (36.7-47.1); MEAN CORPUSCULAR HEMOGLOBIN 33.9 uug (23.8-33.4); MEAN CORPUSCULAR VOLUME 96.7 fL (73.0-96.2); PLATELET COUNT (AUTO) 168 K/uL (152-348)
[2021-05-27 07:28] VITALS: BP 106/49
[2021-05-27] MEDS: FERROUS SULFATE 325 MG TABEC PO SCH (08:12)
[2021-05-27] MEDS: DOCUSATE SODIUM 100 MG CAPSULE PO SCH ×2 (08:12→16:32)
[2021-05-27] MEDS: TIMOLOL MALEATE 0.5% OPHT DROP 5 ML BOTTLE EACHEYE SCH (08:12)
[2021-05-27] MEDS: levETIRAcetam 500 MG TABLET PO SCH ×3 (08:12→20:22)
[2021-05-27] MEDS: CYANOCOBALAMIN 1,000 MCG TABLET PO SCH (08:12)
[2021-05-27 15:12] VITALS: BP 116/61
--- NOTE | 2021-05-27 18:27 | NUR ---
PATIENT REMAINED STABLE, STATED HE DID WELL WITH PT TODAY. NO SIGNS OF ACTIVE BLEEDING IDENTIFIED. PATIENT IS AWAKE, NO DISTRESS IDENTIFIED. NO OTHER CONCERN IDENTIFIED DURING THE SHIFT. WILL ENDORSE TO THE NEXT SHIFT FOR CONTINUITY OF CARE.
--- NOTE | 2021-05-27 20:00 | NUR ---
AWAKE, ALERT RIGHT HIP INCISION DRY AND INTACT,NO COMPLAINTS MADE. VOIDING GOOD, IN NO ACUTE DISTRESS.
[2021-05-27 20:22] VITALS: BP 115/62
[2021-05-27] MEDS: LATANOPROST OPHT DROP 2.5 ML BOTTLE EACHEYE SCH (20:22)
[2021-05-28 04:00] VITALS: BP 120/70
--- NOTE | 2021-05-28 07:00 | NUR ---
RECEIVED PATIENT AWAKE/ALERT, DENIES PAIN. NO DISTRESS IDENTIFIED. KEPT CALL LIGHT WITHIN REACH. WILL CONTINUE TO MONITOR.
--- NOTE | 2021-05-28 07:00 | NUR ---
slept most of the nite . no complains.
[2021-05-28 07:11] LABS: HEMATOCRIT 21.4 % (36.7-47.1); MEAN CORPUSCULAR HEMOGLOBIN 34.1 uug (23.8-33.4); MEAN CORPUSCULAR VOLUME 95.7 fL (73.0-96.2); PLATELET COUNT (AUTO) 171 K/uL (152-348)
[2021-05-28 07:41] LABS: THYROID STIMULATING HORMONE 2.583 mIU/mL (0.358-3.740)
[2021-05-28 07:43] LABS: BILIRUBIN,TOTAL 1.4 mg/dL (0.2-1.0); CREATININE 0.8 mg/dL (0.6-1.3); MAGNESIUM 2.1 mg/dL (1.8-2.4); PHOSPHOROUS 3.3 mg/dL (2.5-4.9); POTASSIUM 3.9 mmol/L (3.5-5.1); TOTAL PROTEIN, SERUM 5.9 g/dL (6.4-8.2)
[2021-05-28 07:45] VITALS: BP 110/54
[2021-05-28 07:47] VITALS: BP 110/54
[2021-05-28] MEDS: CYANOCOBALAMIN 1,000 MCG TABLET PO SCH (08:11)
[2021-05-28] MEDS: DOCUSATE SODIUM 100 MG CAPSULE PO SCH ×2 (08:11→16:59)
[2021-05-28] MEDS: FERROUS SULFATE 325 MG TABEC PO SCH (08:11)
[2021-05-28] MEDS: levETIRAcetam 500 MG TABLET PO SCH ×2 (08:11→20:43)
[2021-05-28] MEDS: TIMOLOL MALEATE 0.5% OPHT DROP 5 ML BOTTLE EACHEYE SCH (08:18)
[2021-05-28] MEDS: SOD FERRIC GLUC COMPLX/SUCROSE 125 MG in IV NORMAL SALINE 100 ML IV SCH (14:38)
--- NOTE | 2021-05-28 14:52 | NUR ---
INTERDISCIPLINARY TEAM CONFERENCE
[2021-05-28 16:10] VITALS: BP 118/57
--- NOTE | 2021-05-28 18:10 | NUR ---
PATIENT REMAINED STABLE, NO DISTRESS IDENTIFIED. FREQUENT CHECKS DONE. KEPT CALL LIGHT WITHIN REACH. ALL DUE MEDS AND ALL NEEDS ATTENDED. WILL ENDORSE TO THE NEXT SHIFT FOR CONTINUITY OF CARE.
--- NOTE | 2021-05-28 19:20 | NUR ---
Patient sitting up on chair, watching TV, alert and oriented x 4. No pain or discomfort noted. Call lights within reach, will continue to monitor.
[2021-05-28 20:00] VITALS: BP 116/65
[2021-05-28] MEDS: LATANOPROST OPHT DROP 2.5 ML BOTTLE EACHEYE SCH (20:43)
[2021-05-29 04:00] VITALS: BP 110/60
--- NOTE | 2021-05-29 04:06 | NUR ---
Voided freely via urinal, no acute distress noted. slept on and off.
[2021-05-29 08:00] VITALS: BP 110/53
[2021-05-29] MEDS: DOCUSATE SODIUM 100 MG CAPSULE PO SCH ×2 (10:18→16:58)
[2021-05-29] MEDS: CYANOCOBALAMIN 1,000 MCG TABLET PO SCH (10:18)
[2021-05-29] MEDS: TIMOLOL MALEATE 0.5% OPHT DROP 5 ML BOTTLE EACHEYE SCH (10:18)
[2021-05-29] MEDS: levETIRAcetam 500 MG TABLET PO SCH ×2 (10:18→20:29)
[2021-05-29 12:13] VITALS: BP 104/51
[2021-05-29] MEDS: SOD FERRIC GLUC COMPLX/SUCROSE 125 MG in IV NORMAL SALINE 100 ML IV SCH (13:43)
[2021-05-29 16:14] VITALS: BP 108/52
--- NOTE | 2021-05-29 18:12 | NUR ---
Patient up sitting on chair, watching TV, alert and oriented x 4. No C/O of pain or discomfort during the shift ambulated with PT tolerated well ice applied to right knee per request timo well . Call lights within reach, will continue to monitor.
--- NOTE | 2021-05-29 18:44 | NUR ---
Informed DR Ramirez of PT result of CT / the right lower extremity with NNO note at this time
[2021-05-29 20:00] VITALS: BP 118/61
[2021-05-29] MEDS: LATANOPROST OPHT DROP 2.5 ML BOTTLE EACHEYE SCH (20:30)
--- NOTE | 2021-05-29 20:41 | NUR ---
eceived patient sitting up on whellchair with faily at bedside. He is waiting for his daughter to visit. FABIO x4. Addendum: 05/29/21 at 2044 by KANU QUEVEDO RN Received patient sitting up on whellchair with faily at bedside. He is waiting for his daughter to visit. ELIUDO x4, able to make needs known. Denies any SOB or pain. S/P right hip Fracture. Midline to right upper arm, intact and patent. Patient states he did move his bowels earlier today and refuses to have any medications for stool softning. Needs assessed and met. Call light within reach.
[2021-05-30 05:00] VITALS: BP 108/58
--- NOTE | 2021-05-30 06:08 | NUR ---
Patient slept well during the night. Right upper arm midline in place, patent and intact. No c/o pain or discomfort. No SOB observed. All needs attended, safety measures in place, call light within reach.
[2021-05-30 06:20] LABS: HEMATOCRIT 21.6 % (36.7-47.1); MEAN CORPUSCULAR HEMOGLOBIN 34.4 uug (23.8-33.4); MEAN CORPUSCULAR VOLUME 96.1 fL (73.0-96.2); PLATELET COUNT (AUTO) 185 K/uL (152-348)
[2021-05-30 06:33] LABS: BILIRUBIN,DIRECT 0.4 mg/dL (0.0-0.2); BILIRUBIN,TOTAL 1.5 mg/dL (0.2-1.0); CREATININE 0.8 mg/dL (0.6-1.3); PHOSPHOROUS 2.8 mg/dL (2.5-4.9); POTASSIUM 3.7 mmol/L (3.5-5.1)
--- NOTE | 2021-05-30 07:38 | NUR ---
Received patient awake resting in bed. AA/O X 4 to person, place, environment. Pt. is cooperative, talkative, pleasant. Pt. has right hip chante, no redness no C/O of pain or acute distress noted. Fall and safety precautions in place.
[2021-05-30] MEDS: levETIRAcetam 500 MG TABLET PO SCH ×2 (08:14→21:01)
[2021-05-30] MEDS: DOCUSATE SODIUM 100 MG CAPSULE PO SCH ×2 (08:14→17:20)
[2021-05-30] MEDS: CYANOCOBALAMIN 1,000 MCG TABLET PO SCH (08:14)
[2021-05-30] MEDS: TIMOLOL MALEATE 0.5% OPHT DROP 5 ML BOTTLE EACHEYE SCH (08:14)
[2021-05-30 08:18] VITALS: BP 105/40
[2021-05-30] MEDS: SOD FERRIC GLUC COMPLX/SUCROSE 125 MG in IV NORMAL SALINE 100 ML IV SCH (13:54)
[2021-05-30 15:04] LABS: *BILIRUBIN,URIN NEGATIVE (NEGATIVE); *CLARITY,URINE CLEAR (CLEAR); *COLOR,URINE YELLOW (YELLOW); *KETONES,URINE NEGATIVE (NEGATIVE); LEUKOCYTE ESTERASE ,URINE NEGATIVE (NEGATIVE); NITRITE, URINE NEGATIVE (NEGATIVE); UGLUCOSE NEGATIVE (NEGATIVE)
[2021-05-30 15:07] LABS: *BLOOD, URINE TRACE LYSED (NEGATIVE)
[2021-05-30 15:37] LABS: WBC,URINE 0-3 /HPF (0-3)
[2021-05-30 16:15] VITALS: BP 103/53
--- NOTE | 2021-05-30 18:26 | NUR ---
Pt noted with a temp of 101.3 in the afternoon V/S ,labs ,CXR ,and urine results related to DR Ramirez with new order for Vancomycin RX to dose Zosyn 3.375 mg Q [address] walker to notified Ortho with the CT of the Right knee /leg results massage was send to DR Ashraf Surgeon with NNO from him at this time was visiting the PT and made aware of PT condition and TX plan Daughter made aware. Pt latest Temp 99.9 no C/O of pain or acute distress noted RX notified of new orders
--- NOTE | 2021-05-30 19:12 | NUR ---
Spoke to DR Ashraf surgeon he said he will be here tomorrow to examine the pt surgical site.
[2021-05-30 20:05] VITALS: BP 108/52
[2021-05-30] MEDS: VANCOMYCIN IV 1,000 MG in IV DEXTROSE 5% 250 ML IV SCH (21:03)
[2021-05-30] MEDS: LATANOPROST OPHT DROP 2.5 ML BOTTLE EACHEYE SCH (21:03)
[2021-05-30] MEDS: PIPERACILLIN SODIUM/TAZOBACTAM 3.375 G in IV DEXTROSE 5% 50 ML IV SCH (22:11)
--- NOTE | 2021-05-30 23:20 | NUR ---
AAOx4 Admitted for right hip IM nailing by Dr Ashraf. Right hip dressing clean and dry with chante intact. Chante a little bit reddenned. On IV ABT given as ordered, tolerated well. Needs attended. Voiding in urinal. Seizure precautions maintained. Patient on kepra. Patient with low grade temp. Encouraged po fluids. Will monitor patient's temp. Fall precautions maintained. Siderails up for safety.
[2021-05-31 04:10] VITALS: BP 111/46
[2021-05-31] MEDS: PIPERACILLIN SODIUM/TAZOBACTAM 3.375 G in IV DEXTROSE 5% 50 ML IV SCH ×3 (05:06→21:04)
[2021-05-31 08:07] VITALS: BP 111/53
[2021-05-31] MEDS: CYANOCOBALAMIN 1,000 MCG TABLET PO SCH (08:53)
[2021-05-31] MEDS: levETIRAcetam 500 MG TABLET PO SCH ×2 (08:53→20:24)
[2021-05-31] MEDS: DOCUSATE SODIUM 100 MG CAPSULE PO SCH ×2 (08:53→17:15)
[2021-05-31] MEDS: TIMOLOL MALEATE 0.5% OPHT DROP 5 ML BOTTLE EACHEYE SCH (08:53)
--- NOTE | 2021-05-31 09:30 | NUR ---
Patient tempt is 100.3. Patient refused blood draw from the lab. Patient doesn't want me to check his right hip surgical site. Explained the risk and benefits but patient refused and stated " I WANT TO TALK TO THE DOCTOR. DOCTOR JAMES. " Notified Doctor James and stated that he will come back and see the patient. Offered patient cold compress and patient refused.
[2021-05-31 09:40] VITALS: BP 104/54
--- NOTE | 2021-05-31 13:30 | NUR ---
Seen by Dr. Ashraf and removed his chante and applied steri strips on it. Patient denies of any pain. Right hip has No redness and not warm to touch.
[2021-05-31 15:02] LABS: HEMATOCRIT 23.9 % (36.7-47.1); MEAN CORPUSCULAR HEMOGLOBIN 34.6 uug (23.8-33.4); MEAN CORPUSCULAR VOLUME 95.6 fL (73.0-96.2); PLATELET COUNT (AUTO) 221 K/uL (152-348)
[2021-05-31] MEDS: VANCOMYCIN IV 1,000 MG in IV DEXTROSE 5% 250 ML IV SCH (15:10)
[2021-05-31 15:43] LABS: BILIRUBIN,TOTAL 1.4 mg/dL (0.2-1.0); POTASSIUM 3.6 mmol/L (3.5-5.1); TOTAL PROTEIN, SERUM 7.2 g/dL (6.4-8.2)
[2021-05-31 16:20] VITALS: BP 103/49
[2021-05-31 20:15] VITALS: BP 98/53
[2021-05-31] MEDS: LATANOPROST OPHT DROP 2.5 ML BOTTLE EACHEYE SCH (20:24)
--- NOTE | 2021-06-01 01:26 | NUR ---
Condition unchanged. Seen by Dr Ashraf earlier this am. [place] removed. Denies any pain nor any discomfort. Patient still on IV ABT given as scheduled. No ill effects noted. Will monitor patient. Needs attended. All due meds given.
[2021-06-01 04:18] VITALS: BP 109/54
[2021-06-01] MEDS: PIPERACILLIN SODIUM/TAZOBACTAM 3.375 G in IV DEXTROSE 5% 50 ML IV SCH ×3 (05:13→21:02)
--- NOTE | 2021-06-01 07:33 | NUR ---
Patient is alert and oriented x3 with periods of forgetfulness and hard of hearing. Covid Antigen test done and sent to the labs. Patient denies of any pain at this time, and no s/s of distress. Bed alarm functioning well. Will continue to monitor for patient's safety.
[2021-06-01] MEDS: VANCOMYCIN IV 1,000 MG in IV DEXTROSE 5% 250 ML IV SCH (09:07)
[2021-06-01] MEDS: TIMOLOL MALEATE 0.5% OPHT DROP 5 ML BOTTLE EACHEYE SCH (09:07)
[2021-06-01] MEDS: CYANOCOBALAMIN 1,000 MCG TABLET PO SCH (09:07)
[2021-06-01] MEDS: DOCUSATE SODIUM 100 MG CAPSULE PO SCH ×2 (09:07→17:10)
[2021-06-01] MEDS: levETIRAcetam 500 MG TABLET PO SCH ×2 (09:07→20:27)
--- NOTE | 2021-06-01 12:53 | NUR ---
Temp is 100.5 , patient refused cold compress. Notified Dr. Ramirez and ordered for Tylenol 650mg q6 PRN.
[2021-06-01] MEDS ORDERED: ACETAMINOPHEN 325 MG TABLET PO PRN (13:00)
--- NOTE | 2021-06-01 15:45 | NUR ---
Patient's temp is 98.2 and patient is not warm to touch and patient denies of any discomfort.
[2021-06-01 16:00] VITALS: BP 105/60
--- NOTE | 2021-06-01 19:26 | NUR ---
Patient offered a PRN medication for constipation but patient refused. Denies any discomfort and will endorse to the next shift.
[2021-06-01 20:15] VITALS: BP 108/48
[2021-06-01] MEDS: LATANOPROST OPHT DROP 2.5 ML BOTTLE EACHEYE SCH (20:26)
[2021-06-01] MEDS: ACIDOPHILUS/BULGARICUS CHEW TAB PO SCH (20:27)
--- NOTE | 2021-06-01 23:47 | NUR ---
PATIENT REMAINED STABLE DURING THE SHIFT. AFEBRILE. ALL DUE MEDS GIVEN ORDERED. KEPT CALL LIGHT WITHIN REACH. WILL ENDORSE FOR CONTINUITY OF CARE.
[2021-06-02 04:15] VITALS: BP 103/52
[2021-06-02] MEDS: VANCOMYCIN IV 1,000 MG in IV DEXTROSE 5% 250 ML IV SCH (04:22)
--- NOTE | 2021-06-02 05:35 | NUR ---
HAD AQUIET NOC, VANCO TR 8.1, VANCO I IVPB GIVEN ORDERED.REPOSITIONED FOR COMFORT.
[2021-06-02] MEDS: PIPERACILLIN SODIUM/TAZOBACTAM 3.375 G in IV DEXTROSE 5% 50 ML IV SCH ×2 (06:23→15:01)
--- NOTE | 2021-06-02 06:40 | NUR ---
SLEPT AT LONG INTERVALS, NEEDS ATTENDED TO, IV SITE PATENT AND INTACT.
[2021-06-02 07:09] LABS: HEMATOCRIT 21.3 % (36.7-47.1); MEAN CORPUSCULAR HEMOGLOBIN 34.1 uug (23.8-33.4); MEAN CORPUSCULAR VOLUME 95.3 fL (73.0-96.2); PLATELET COUNT (AUTO) 177 K/uL (152-348)
[2021-06-02 07:48] LABS: BILIRUBIN,TOTAL 0.9 mg/dL (0.2-1.0); CREATININE 0.8 mg/dL (0.6-1.3); POTASSIUM 3.6 mmol/L (3.5-5.1); TOTAL PROTEIN, SERUM 5.9 g/dL (6.4-8.2)
[2021-06-02 08:00] VITALS: BP 103/50
--- NOTE | 2021-06-02 08:00 | NUR ---
Discussed proper pain management with pt and proper TDWB on the right leg. Incision site with steri strips no redness noted. Pt verbalized understanding.
[2021-06-02] MEDS: TIMOLOL MALEATE 0.5% OPHT DROP 5 ML BOTTLE EACHEYE SCH (09:08)
[2021-06-02] MEDS: CYANOCOBALAMIN 1,000 MCG TABLET PO SCH (09:08)
[2021-06-02] MEDS: ACIDOPHILUS/BULGARICUS CHEW TAB PO SCH ×2 (09:08→21:08)
[2021-06-02] MEDS: levETIRAcetam 500 MG TABLET PO SCH ×2 (09:08→21:08)
[2021-06-02] MEDS: DOCUSATE SODIUM 100 MG CAPSULE PO SCH ×2 (09:08→16:53)
[2021-06-02 16:00] VITALS: BP 99/49
--- NOTE | 2021-06-02 18:00 | NUR ---
PT tolerated therapy session today. PT denies any c/o pain.
[2021-06-02 20:30] VITALS: BP 103/49
--- NOTE | 2021-06-02 21:00 | NUR ---
Received patient in bed. He is noted Awake A/O x 4. in no distress. V/S stable. He denied pain at this time. Will continue to monitor.
[2021-06-02] MEDS: LATANOPROST OPHT DROP 2.5 ML BOTTLE EACHEYE SCH (21:12)
[2021-06-02] MEDS: PIPERACILLIN SODIUM/TAZOBACTAM 3.375 G in IV DEXTROSE 5% 100 ML IV SCH (22:07)
--- NOTE | 2021-06-02 22:10 | NUR ---
Lt upper arm midline saline lock noted patent and intact. started Zosyn 3.373g IV as per MD ordered. will continue to monitor.
--- NOTE | 2021-06-02 22:30 | NUR ---
Zosyn 3.37G IV running at 25ml/hr. patient is tolerating well. Pt is afebrile in no distress. Will continue to monitor.
[2021-06-03 04:15] VITALS: BP 97/50
[2021-06-03] MEDS: PIPERACILLIN SODIUM/TAZOBACTAM 3.375 G in IV DEXTROSE 5% 100 ML IV SCH (05:47)
[2021-06-03 07:30] VITALS: BP 103/56
[2021-06-03] MEDS: ACIDOPHILUS/BULGARICUS CHEW TAB PO SCH ×2 (09:15→20:39)
[2021-06-03] MEDS: DOCUSATE SODIUM 100 MG CAPSULE PO SCH ×2 (09:15→17:17)
[2021-06-03] MEDS: levETIRAcetam 500 MG TABLET PO SCH ×2 (09:15→20:39)
[2021-06-03] MEDS: CYANOCOBALAMIN 1,000 MCG TABLET PO SCH (09:15)
[2021-06-03] MEDS: TIMOLOL MALEATE 0.5% OPHT DROP 5 ML BOTTLE EACHEYE SCH (09:16)
[2021-06-03 15:44] VITALS: BP 100/46
--- NOTE | 2021-06-03 20:00 | NUR ---
awake alert,in a good mood, no complaints made, made comfortable.
[2021-06-03 20:15] VITALS: BP 105/53
[2021-06-03] MEDS: LATANOPROST OPHT DROP 2.5 ML BOTTLE EACHEYE SCH (20:38)
--- NOTE | 2021-06-04 06:57 | NUR ---
SLEPT OF THE NURSE. NO COMPLAINTS MADE.
[2021-06-04 07:14] LABS: HEMATOCRIT 23.2 % (36.7-47.1); MEAN CORPUSCULAR HEMOGLOBIN 34.2 uug (23.8-33.4); MEAN CORPUSCULAR VOLUME 96.2 fL (73.0-96.2); PLATELET COUNT (AUTO) 187 K/uL (152-348)
[2021-06-04 07:30] VITALS: BP 123/61
[2021-06-04] MEDS: DOCUSATE SODIUM 100 MG CAPSULE PO SCH ×2 (09:00→16:49)
[2021-06-04] MEDS: levETIRAcetam 500 MG TABLET PO SCH ×2 (09:24→20:23)
[2021-06-04] MEDS: CYANOCOBALAMIN 1,000 MCG TABLET PO SCH (09:24)
[2021-06-04] MEDS: ACIDOPHILUS/BULGARICUS CHEW TAB PO SCH ×2 (09:25→20:23)
[2021-06-04] MEDS: TIMOLOL MALEATE 0.5% OPHT DROP 5 ML BOTTLE EACHEYE SCH (09:25)
--- NOTE | 2021-06-04 13:47 | NUR ---
INTERDISCIPLINARY TEAM CONFERENCE
[2021-06-04 16:00] VITALS: BP 98/52
[2021-06-04 20:15] VITALS: BP 103/49
[2021-06-04] MEDS: LATANOPROST OPHT DROP 2.5 ML BOTTLE EACHEYE SCH (20:24)
[2021-06-05 04:15] VITALS: BP 103/51
[2021-06-05 04:30] VITALS: BP 112/58
--- NOTE | 2021-06-05 04:41 | NUR ---
Awake alert and oriented x4 Needs attended. VSS. Kept comfortable.Voiding well in the urinal. All due meds given as needed. Will monitor patient. Fall precautions maintained.
--- NOTE | 2021-06-05 08:15 | NUR ---
Received patient awake, alert, oriented x 4, sitting on the side of the bed,having breakfast afebrile, not in any form of respiratory distress distress on room air. He denies any pain or discomfort. use the urinal fall precaution in place, bed in low position. Call light and frequently used items placed within patient's reach. Will continue to monitor closely.
[2021-06-05 08:47] VITALS: BP 123/62
[2021-06-05] MEDS: TIMOLOL MALEATE 0.5% OPHT DROP 5 ML BOTTLE EACHEYE SCH (09:18)
[2021-06-05] MEDS: ACIDOPHILUS/BULGARICUS CHEW TAB PO SCH ×2 (09:19→20:24)
[2021-06-05] MEDS: levETIRAcetam 500 MG TABLET PO SCH ×2 (09:19→20:24)
[2021-06-05] MEDS: CYANOCOBALAMIN 1,000 MCG TABLET PO SCH (09:19)
[2021-06-05] MEDS: DOCUSATE SODIUM 100 MG CAPSULE PO SCH ×2 (09:19→16:33)
[2021-06-05 12:00] VITALS: BP 107/51
[2021-06-05 15:59] VITALS: BP 89/50
--- NOTE | 2021-06-05 18:20 | NUR ---
Patient remain awake, alert, oriented x 4, pleasant, up on w/c for therapy afebrile, not in any form of respiratory distress distress on room air. He denies any pain or discomfort. use the urinal voiding well fall precaution in place, bed in low position. Call light and frequently used items placed within patient's reach. no acute distress noted.
--- NOTE | 2021-06-05 19:20 | NUR ---
Pt awake, AO x 4, no signs of distress. Pt is able to verbalize all his needs. Urinal is placed close by bedside. Call lights within reach, bed alarm on, safety measures initiated. Will continue to monitor.
[2021-06-05 20:15] VITALS: BP 108/58
[2021-06-05] MEDS: LATANOPROST OPHT DROP 2.5 ML BOTTLE EACHEYE SCH (20:24)
[2021-06-06 04:15] VITALS: BP 121/64
[2021-06-06 07:36] VITALS: BP 118/67
--- NOTE | 2021-06-06 07:41 | NUR ---
Received patient awake. AO x 4 with no signs of distress. Call light and phone placed within reach.
[2021-06-06] MEDS: ACIDOPHILUS/BULGARICUS CHEW TAB PO SCH (08:34)
[2021-06-06] MEDS: DOCUSATE SODIUM 100 MG CAPSULE PO SCH (08:34)
[2021-06-06] MEDS: levETIRAcetam 500 MG TABLET PO SCH (08:34)
[2021-06-06] MEDS: CYANOCOBALAMIN 1,000 MCG TABLET PO SCH (08:35)
[2021-06-06] MEDS: TIMOLOL MALEATE 0.5% OPHT DROP 5 ML BOTTLE EACHEYE SCH (08:35)
--- NOTE | 2021-06-06 14:21 | NUR ---
D/C TO HOME HEALTH WITH DAUGHTER. VSS. D/C INSTRUCTIONS GIVEN TO PT AND DAUGHTER. VERBALIZED UNDERSTANDING. FROYANER W/C GIVEN FOR THEM TO BRING BACK WHEN THEIR W/C IS DELIVERED TO HOME.
== END 2021-06-06 14:27 | disposition home health service (06) | DRG 560 ==
PROVIDERS: ADMIT Physical Medicine & Rehabilitation Pain Medicine; ATTEND Physical Medicine & Rehabilitation Pain Medicine
DX: S72.141D Displaced intertrochanteric fracture of right femur, subsequent encounter for closed fracture with routine healing (principal); D61.818 Other pancytopenia; D68.59 Other primary thrombophilia; E44.0 Moderate protein-calorie malnutrition; I50.32 Chronic diastolic (congestive) heart failure; R17 Unspecified jaundice; D53.9 Nutritional anemia, unspecified; G40.909 Epilepsy, unspecified, not intractable, without status epilepticus; W01.0XXD Fall on same level from slipping, tripping and stumbling without subsequent striking against object, subsequent encounter; N40.0 Benign prostatic hyperplasia without lower urinary tract symptoms; E61.1 Iron deficiency; R50.9 Fever, unspecified; K59.00 Constipation, unspecified; K82.8 Other specified diseases of gallbladder; M11.261 Other chondrocalcinosis, right knee; M71.21 Synovial cyst of popliteal space [Baker], right knee; N28.1 Cyst of kidney, acquired; M17.11 Unilateral primary osteoarthritis, right knee
CPT/HCPCS: 36415; 70030-TC; 71045; 73502; 73700; 83010; 83550; 83615; 83735; 84100; 84443; 85025; 85610; 85730; 86880; 87040; 87086; 87806; 97161; J2543; J2916; J3370; J3490; J7040; J7060

== ENCOUNTER 2024-08-14 10:50 | Emergency (ER) | payer MEDICARE, OTHER ==
[~2024-08-14] VITALS: Ht 167.6 cm; Wt 55.8 kg
[~2024-08-14 10:50] MED LIST changes: +CALC500T63 PO; +FERR325T28 PO; +Lactose-Free Food PO; +MAGN400O6 PO
[2024-08-14] MEDS ORDERED: TDAP DIPH,PERTUSS,TET VAC/PF 0.5 ML DISP.SYRIN IM ONE (11:50)
[2024-08-14] MEDS: TDAP DIPH,PERTUSS,TET VAC/PF 0.5 ML DISP.SYRIN IM ONE (11:57)
[2024-08-14 12:04] VITALS: BP 140/74; O2SAT 99
== END 2024-08-14 12:05 | disposition home or self-care (01) ==
LOC: ER 10:50
DX: S61.210A Laceration without foreign body of right index finger without damage to nail, initial encounter (principal); G40.909 Epilepsy, unspecified, not intractable, without status epilepticus; Z90.79 Acquired absence of other genital organ(s); Z79.899 Other long term (current) drug therapy; W26.0XXA Contact with knife, initial encounter; Y93.89 Activity, other specified; Y92.89 Other specified places as the place of occurrence of the external cause; Y99.8 Other external cause status
CPT/HCPCS: 90715; A4606; A4663

== ENCOUNTER 2025-01-09 01:26 | Emergency (ER) | payer MEDICARE, OTHER ==
[~2025-01-09] VITALS: Ht 170.2 cm; Wt 74.8 kg
[2025-01-09] MEDS ORDERED: TDAP DIPH,PERTUSS,TET VAC/PF 0.5 ML DISP.SYRIN IM ONE (01:41)
[2025-01-09] MEDS ORDERED: LIDOCAINE 1%-EPI 1:100,000 20 ML VIAL ONE (02:10)
[2025-01-09] MEDS: TDAP DIPH,PERTUSS,TET VAC/PF 0.5 ML DISP.SYRIN IM ONE (04:29)
[2025-01-09 05:52] VITALS: BP 163/75; O2SAT 98
== END 2025-01-09 05:53 | disposition home or self-care (01) ==
LOC: ER 01:29
DX: S01.01XA Laceration without foreign body of scalp, initial encounter (principal); G40.909 Epilepsy, unspecified, not intractable, without status epilepticus; Z79.899 Other long term (current) drug therapy; Z90.79 Acquired absence of other genital organ(s); Z86.16 Personal history of COVID-19; Z87.39 Personal history of other diseases of the musculoskeletal system and connective tissue; W22.8XXA Striking against or struck by other objects, initial encounter; Y93.89 Activity, other specified; Y92.89 Other specified places as the place of occurrence of the external cause; Y99.8 Other external cause status
CPT/HCPCS: 12002; 70450; 99284; J3490; 90715; A4606; A4663

== ENCOUNTER 2025-01-17 11:00 | Emergency (ER) | payer MEDICARE, OTHER ==
[~2025-01-17] VITALS: Ht 170.2 cm; Wt 63.5 kg
[2025-01-17] MEDS ORDERED: NEOMY/BACITRA/POLYMYXIN B OINT UD PACKET TP ONE (11:30)
[2025-01-17] MEDS: NEOMY/BACITRA/POLYMYXIN B OINT UD PACKET TP ONE (11:37)
[2025-01-17 11:40] VITALS: BP 130/73; O2SAT 98
== END 2025-01-17 11:41 | disposition home or self-care (01) ==
LOC: ER 11:00
DX: S01.01XD Laceration without foreign body of scalp, subsequent encounter (principal); G40.909 Epilepsy, unspecified, not intractable, without status epilepticus; Z90.79 Acquired absence of other genital organ(s); Z86.16 Personal history of COVID-19; Z79.899 Other long term (current) drug therapy; Y92.89 Other specified places as the place of occurrence of the external cause
CPT/HCPCS: A4606; A4663